=== PATIENT | male | born 1955 | race Two or more races ===

== ENCOUNTER → 2019-10-21 10:49 | Outpatient (CLI) | payer OTHER | END | disposition home or self-care (01) | LOC: LAB 10:49 | DX: N20.0 Calculus of kidney (principal) ==

== ENCOUNTER 2019-10-23 07:33 | Outpatient (CLI) | payer OTHER | END 2019-10-23 07:50 | disposition home or self-care (01) | LOC: TOM 07:33 | DX: C25.9 Malignant neoplasm of pancreas, unspecified (principal) ==

== ENCOUNTER → 2019-10-30 | Outpatient (CLI) | payer OTHER | END | disposition home or self-care (01) | LOC: NUCLEAR 07:43 | PROVIDERS: ATTEND Internal Medicine Cardiovascular Disease | DX: I25.118 Atherosclerotic heart disease of native coronary artery with other forms of angina pectoris (principal); I70.0 Atherosclerosis of aorta; E78.2 Mixed hyperlipidemia; E11.9 Type 2 diabetes mellitus without complications | CPT/HCPCS: A9500; 93017; 78452 ==